=== PATIENT | male | born 1985 | race Two or more races ===

== ENCOUNTER 2017-06-09 07:59 | Day surgery (SDC) | payer OTHER ==
[2017-06-09] VITALS (9 sets, daily range): BP systolic 88–130; BP diastolic 46–91
[~2017-06-09] VITALS: Ht 185.4 cm; Wt 133.4 kg
--- NOTE | 2017-06-09 06:40 | Anethesia Preoperative Eval ---
Anesthesia Pre-op PMH/ROS General Date of Evaluation: Jun 09, 2017 Time of Evaluation: 06:38 Anesthesiologist: willard ASA Score: ASA 2 Mallampati Score Class I : Soft palate, uvula, fauces, pillars visible Class II: Soft palate, uvula, fauces visible Class III: Soft palate, base of uvula visible Class IV: Only hard plate visible Mallampati Classification: Class II Surgeon: jessica Diagnosis: abdominal pain Surgical Procedure: colonoscopy Anesthesia History: none Social History: smoking - nonsmoker Family History: no anesthesia problems Allergies: Coded Allergies: WATERMELON (Verified Adverse Reaction, Severe, throat and mouth swelling, 06/09/17) Medications: see eMAR Past Medical History Gastrointestinal/Genitourinary: Reports: GERD, other - hematochezia Musculoskeletal/Integumentary: Reports: other - joint pain Other: obesity Anesthesia Pre-op Phys. Exam Physician Exam Last Vital Signs Date Time Temp Pulse Resp B/P (MAP) Pulse Ox O2 Delivery O2 Flow Rate FiO2 06/09/17 09:13 98.0 78 18 116/67 98 Room Air 98.0 Constitutional: NAD Neurologic: CN 2-12 intact Cardiovascular: RRR Respiratory: CTA Gastrointestinal: S/NT/ND Airway Exam Mallampati Score: Class II MO: full Neck: short TMD: 2fb ROM: full Teeth: intact Anesthesia Pre-op A/P Risk Assessment & Plan Assessment: asa2 Plan: mac Status Change Before Surgery: No Pre-Antibiotics Drug: LOY Sierra Jun 09, 2017 06:40
[~2017-06-09 07:59] MED LIST: ALEVE220 M2 PO; Atropine Inj 1mg/10ml Syr IV PRN; DiphenhydrAMINE 50mg/ml Inj IVP PRN; LR 1000ml 1,000 ML IVLG SCH; Midazolam 2mg/2ml Inj IVP PRN; NASAL SPRAY; fentaNYL 100 mcg/2 mL IV PRN
[2017-06-09] MEDS ORDERED: bp med (09:20)
[2017-06-09] MEDS ORDERED: Lidocaine 1% MPF 10mg/ml 5ml ONE (09:30)
[2017-06-09] MEDS ORDERED: LR 1000ml ONE (09:30)
[2017-06-09] MEDS ORDERED: Propofol 200mg/20ml IV ONE (09:30)
--- NOTE | 2017-06-09 09:31 | Short Stay Surgery H&P ---
History of Present Illness History of Present Illness Chief Complaint Abdominal pains/rectal bleeding/constipation RUTH Hinds is a 32 year old male who was admitted on for Abdominal Pain/ rectal bleeding/constipation Patient History Allergies: Coded Allergies: WATERMELON (Verified Adverse Reaction, Severe, throat and mouth swelling, 06/09/17) PAST MEDICAL HISTORY: (1) Hypertension (2) Hyperlipidemia Past Surgeries: Social History: Medication History Scheduled PRN Naproxen Sodium (Aleve), 220 MG PO BID PRN for For Pain, (Reported) Miscellaneous Medications [Nasal Chadron], (Reported) [bp med], (Reported) Review of Systems Cardiovascular: Reports: no symptoms Respiratory: Reports: no symptoms Skeletal: Reports: trauma Gastrointestinal: Reports: gastro esophageal reflux disease, other Genitourinary: Reports: no symptoms Neurologic: Reports: no symptoms Endocrine: Reports: no symptoms Hematologic: Reports: no symptoms Physical Exam Vital Signs Last Vital Signs Date Time Temp Pulse Resp B/P (MAP) Pulse Ox O2 Delivery O2 Flow Rate FiO2 06/09/17 09:13 98.0 78 18 116/67 98 Room Air 98.0 Skin: normal HENT: normal Heart: normal Lungs: normal Abdomen: abnormal Extremities: normal Genitourinary: normal Plan Plan of Care Total colonoscopy Preop Interventions None. Summary of Findings See the reports Final Diagnosis: Attestation Are the patient's medical conditions optimized for surgery? Attestation Response: yes KITTY SHELLEY Jun 09, 2017 09:31
--- NOTE | 2017-06-09 09:32 | Pre-Procedure Note/Attestation ---
Pre-Procedure Note/Attestation Complete Prior to Procedure Planned Procedure: left Procedure Narrative: Endoscopic examination of the colon Indications for Procedure Pre-Operative Diagnosis: R/O hemorrhoids/polyps/CA Attestation I attest that I discussed the nature of the procedure; its benefits; risks and complications; and alternatives (and the risks and benefits of such alternatives ), prior to the procedure, with the patient (or the patient's legal clearance representative). I attest that, if there was a reasonable possibility of needing a blood transfusion, the patient (or the patient's legal clearance representative) was given the [facility] standardized written summary, pursuant to the Dimas Hollister Blood Safety Act ([place] Health and Safety Code # 1645, as amended). I attest that I re-evaluated the patient just prior to the surgery and that there has been no change in the patient's H&P, except as documented below: KARSTEN,SAID Jun 09, 2017 09:32
--- NOTE | 2017-06-09 10:17 | Endoscopy Procedure Note ---
Endoscopy Procedure Note General Indication for Procedure: Rectal bleeing/constipation and abdominal pains Procedures Performed: colonoscopy - minimal internal hemorrhoids with poor colon prep. Terminal ilium penerated with normal findings. Operative Findings/Diagnosis: minimal internal hemorrhoids Specimen: none Pt Tolerated Procedure Well: Yes Estimated Blood Loss: none Anesthesia Anesthesiologist: Dr. Garcia Anesthesia: moderate sedation Medications Medication Given: see anesthesia record Inserted Devices Implant(s) used?: No Quality Quality of Bowel Preparation: Poor Why scope didn't reach cecum: Bowel preparation poor Was there any complications?: No GI Core Measures 50 yrs or older w/o bx or poly: Yes 10yrs. F/U not recommended: Yes If not recommended, why?: Inadequate Prep Med reason:<3 yrs.: System Reason:<3 yrs.: KITTY SHELLEY Jun 09, 2017 10:17
--- NOTE | 2017-06-09 10:18 | Discharge Instructions ---
Discharge Instructions Discharge Instructions Follow up with: See the doctor in office after 2 weeks For Congestive Heart Failure Reminder Report to your physician any weight gain of 5 pounds or more in one week. KITTY SHELLEY Jun 09, 2017 10:18
--- NOTE | 2017-06-09 12:02 | Immediate Post-Op Evaluation ---
Immediate Post-Op Evalulation Immediate Post-Op Evalulation Procedure: colonoscopy Date of Evaluation: Jun 09, 2017 Time of Evaluation: 10:28 IV Fluids: 400ml Blood Products: none Estimated Blood Loss: negligible Blood Pressure Systolic: 88 Blood Pressure Diastolic: 46 Pulse Rate: 75 Respiratory Rate: 18 O2 Sat by Pulse Oximetry: 98 Temperature (Fahrenheit): 97.6 Pain Score (1-10): 0 Nausea: No Vomiting: No Complications none Patient Status: awake, reacts, patent Hydration Status: adequate Drug: LOY Sierra Jun 09, 2017 12:02
--- NOTE | 2017-06-09 12:04 | 48 Hour Post Anesthesia Eval ---
Post Anesthesia Evaluation Procedure: colonoscopy Date of Evaluation: Jun 09, 2017 Time of Evaluation: 10:30 Blood Pressure Systolic: 98 0: 56 Pulse Rate: 70 Respiratory Rate: 18 Temperature (Fahrenheit): 97.6 O2 Sat by Pulse Oximetry: 98 Airway: patent Nausea: No Vomiting: No Pain Intensity: 0 Hydration Status: adequate Cardiopulmonary Status: stable Mental Status/LOC: patient returned to baseline Post-Anesthesia Complications: none Follow-up care needed: N/A LOY YOST Jun 09, 2017 12:04
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
--- NOTE | 2017-06-09 21:00 | Procedure Note ---
DATE OF PROCEDURE: 06/09/2017 PROCEDURE: Total colonoscopy. REFERRING PHYSICIAN: Surya Serra M.D., he is not on the staff. PREOPERATIVE DIAGNOSES: Rectal bleeding, constipation, and abdominal pain. POSTOPERATIVE DIAGNOSIS: Minimal internal hemorrhoids, otherwise normal total normal colonoscopy up to the base of the cecum with poor colonic preparation. MEDICATION USED: Per Dr. Garcia, anesthesiologist. INSTRUMENT: GIF Olympus videocolonoscope. DESCRIPTION OF PROCEDURE: The patient, after arriving at endoscopy unit, was told about risks and benefits of the procedure, which he accepted and signed informed consent. He was then put on the left lateral decubitus position. After adequate IV sedation, the scope was gently passed through the anal area, which revealed evidence of minimal internal hemorrhoids, which were not friable. The rest of the rectum looked normal. At this time, the scope was passed, normal looking rectum, and gradually advanced into rather redundant descending colon, which was filled with liquidy stool signifying lack of adequate preparation. As such, the presence of a small diminutive polypoid lesion could not be ruled out, though there were no gross polyps noted at this time and the examination was done up to the base of the cecum. Gradually, the scope reached towards the splenic flexure, from there into transverse colon, hepatic flexure, and finally guided into the right colon all the way to the base of the cecum. All these areas were also normal. At this time, the scope was advanced into the terminal ileum, which looked quite normal without any evidence of pathology. At this point, within 7 minutes, the scope was gradually pulled out and re-evaluation of the colon did not reveal any other abnormalities. The patient tolerated the procedure well and left the endoscopy room in a good condition. Said Cam Ponce DR: JESUS JOB#: [id number] CC: NICOL
== END 2017-06-09 11:30 | disposition home or self-care (01) ==
LOC: GAS 07:59
DX: K64.8 Other hemorrhoids (principal); K59.00 Constipation, unspecified; I10 Essential (primary) hypertension; E78.5 Hyperlipidemia, unspecified; K21.9 Gastro-esophageal reflux disease without esophagitis; Z91.018 Allergy to other foods
CPT/HCPCS: 45378; J2704; J7120; 94003; 94150